=== PATIENT | male | born 1960 | race Caucasian/White ===

== ENCOUNTER 2021-04-03 06:22 | Emergency (ER) | payer BC ==
--- NOTE | 2021-04-03 07:28 | EDM.PDOC ---
ED HPI GENERAL MEDICAL PROBLEM - General Chief Complaint: Genitourinary Problem Stated Complaint: CANNOT PASS URINE Time Seen by Provider: 04/03/21 07:00 Source of Information: Reports: Patient History Limitations: Reports: No Limitations - History of Present Illness INITIAL COMMENTS - FREE TEXT/NARRATIVE: 60-year-old male who has had urinary retention since last evening. This is never happened to him before. He did drink a lot of water and alcohol last evening before going to bed and was already having trouble passing his urine. It started while he was traveling up to this area from [place]. He is very uncomfortable. Onset: Gradual Duration: Hour(s): (Developed over the past 12 hours) Location: Reports: Abdomen (Lower abdomen is very uncomfortable) Associated Symptoms: Reports: No Other Symptoms bladder Pain Score (Numeric/FACES): 4 - Related Data Allergies Allergy/AdvReac Type Severity Reaction Status Date / Time No Known Allergies Allergy Verified 04/03/21 06:35 Home Meds: Home Meds Sertraline [Zoloft] 50 mg PO DAILY 04/03/21 [History] hydroCHLOROthiazide [Hydrochlorothiazide] 50 mg PO DAILY 04/03/21 [History] lisinopriL [Lisinopril] 20 mg PO DAILY 04/03/21 [History] Past Medical History HEENT History: Reports: Impaired Vision, Other (See Below) Other HEENT History: reading glasses Cardiovascular History: Reports: Hypertension Genitourinary History: Reports: Retention, Urinary Musculoskeletal History: Reports: Gout Neurological History: Reports: Concussion Psychiatric History: Reports: Anxiety, Depression - Infectious Disease History Infectious Disease History: Reports: Chicken Pox - Past Surgical History HEENT Surgical History: Reports: Tonsillectomy Social & Family History - Tobacco Use Tobacco Use Status *Q: Never Tobacco User - Recreational Drug Use Recreational Drug Use: No ED ROS GENERAL - Review of Systems Review Of Systems: See Below Constitutional: Denies: Fever, Chills HEENT: Reports: No Symptoms Respiratory: Reports: No Symptoms Cardiovascular: Reports: No Symptoms GI/Abdominal: Reports: Abdominal Pain : Reports: Urgency, Urinary Retention Musculoskeletal: Reports: No Symptoms Skin: Reports: No Symptoms ED EXAM, RENAL/ - Physical Exam Exam: See Below Exam Limited By: No Limitations General Appearance: Alert, Anxious, Moderate Distress Eye Exam: Bilateral Eye: Normal Inspection Head: Atraumatic Respiratory/Chest: No Respiratory Distress GI/Abdominal: Distended (Lower abdomen is distended due to bladder fullness), Tender (Male) Exam: Suprapubic Fullness Extremities: Normal Inspection Neurological: Alert, Oriented Psychiatric: Anxious Skin Exam: Warm, Dry Course - Vital Signs Last Recorded V/S: Last Vital Signs Temp 98.0 F 04/03/21 06:43 Pulse 85 04/03/21 06:43 Resp 13 04/03/21 06:43 BP 137/96 H 04/03/21 06:44 Pulse Ox 100 04/03/21 06:43 - Re-Assessments/Exams Free Text/Narrative Re-Assessment/Exam: 04/03/21 07:26 Bladder scan confirmed almost a liter of urine in his bladder so Ontiveros was placed without difficulty. 1250 mL of clear urine was released in his symptoms resolved. Ontiveros was left in for 1/2-hour then removed, patient was encouraged to urinate often and avoid alcohol for the next couple of days and follow-up with his primary provider in the next few days for a more thorough exam including a prostate exam. Departure - Departure Time of Disposition: 07:40 Disposition: Home, Self-Care 01 Clinical Impression: Acute urinary retention - Discharge Information Instructions: Acute Urinary Retention, Male, [id number] Referrals: PCP,None [Primary Care Provider] - Forms: ED Department Discharge Care Plan Goals: Avoid alcohol for the next couple of days, urinate frequently to avoid buildup of pressure, and consider rechecking with your regular doctor this week to discuss a more thorough exam including a prostate exam. Return anytime if symptoms recur. Sepsis Event Note (ED) - Evaluation Sepsis Screening Result: No Definite Risk - Focused Exam Vital Signs: Vital Signs Temp Pulse Resp BP Pulse Ox 04/03/21 06:44 137/96 H 04/03/21 06:43 98.0 F 85 13 176/104 H 100 04/03/21 06:42 98.0 F 85 13 176/104 H 100
== END 2021-04-03 08:03 | disposition home or self-care (01) ==
LOC: JP.ED 06:22
DX: R33.9 Retention of urine, unspecified (principal); I10 Essential (primary) hypertension; Z79.899 Other long term (current) drug therapy
CPT/HCPCS: 99283-25